=== PATIENT | male | born 1980 | race Caucasian/White ===

== ENCOUNTER 2019-01-22 09:51 | Emergency (ER) | payer BC ==
[2019-01-22 11:33] VITALS: BP 127/84
[2019-01-22] MEDS ORDERED: Ondansetron ODT TAB* 4 MG SL ONE (12:25)
--- NOTE | 2019-01-22 13:33 | UC ---
General HPI - HPI Summary HPI Summary: 38 year old male with no PMH presents with nausea, vomiting, watery diarrhea x 36 hours. Patient believes it was due to eating old spaghetti sauce opened in [facility] fridge for too long. Patient presents with mother who does not have any symptoms. no fever, chills. diffuse abdominal pains. no blood in stool/ vomit. No abdominal surgeries. no other symptoms. - History of Current Complaint Chief Complaint: UCGI Stated Complaint: VOMITING,DIAHREA Time Seen by Provider: 01/22/19 12:08 Hx Obtained From: Patient, Family/[employer] - mother Onset/Duration: Sudden Onset, Lasting Days - 36 hours Timing: Constant Onset Severity: Mild Current Severity: Mild Pain Intensity: 3 Associated Signs & Symptoms: Positive: Abdominal Pain, Diarrhea, Decreased Oral Intake, Nausea, Vomiting. Negative: Back Pain, Cough, Chest Pain, Decreased Responsiveness, Dizziness, Diaphoresis, Fever, Headache, Hematemesis, Hemoptysis , Melena - Allergy/Home Medications Allergies/Adverse Reactions: Allergies Allergy/AdvReac Type Severity Reaction Status Date / Time No Known Allergies Allergy Verified 01/22/19 11:33 Home Medications: Home Medications Levothyroxine Sodium 137 mcg PO DAILY WITH MEAL 01/22/19 [History Confirmed ] Sertraline* [Zoloft*] 150 mg PO BEDTIME 01/22/19 [History Confirmed 01/22/19] buPROPion SR TAB* [Wellbutrin SR TAB*] 150 mg PO BID 01/22/19 [History Confirmed 01/22/19] busPIRone TAB* [Buspar TAB*] 15 mg PO BID 01/22/19 [History Confirmed 01/22/19] PMH/Surg Hx/FS Hx/Imm Hx Previously Healthy: Yes - Surgical History Surgical History: None - Family History Known Family History: Positive: Non-Contributory - Social History Occupation: Employed Full-time Alcohol Use: Rare Substance Use Type: None Smoking Status (MU): Never Smoked Tobacco Review of Systems All Other Systems Reviewed And Are Negative: Yes Constitutional: Positive: Negative. Negative: Fever, Chills, Fatigue Gastrointestinal: Positive: Abdominal Pain, Vomiting, Diarrhea, Nausea Genitourinary: Positive: Negative. Negative: Hematuria, Frequency, Urgency Motor: Positive: Negative Psychological: Positive: Negative Is Patient Immunocompromised?: No Physical Exam Triage Information Reviewed: Yes Appearance: Well-Appearing, No Pain Distress, Well-Nourished Vital Signs: Initial Vital Signs Temp 99.2 F 01/22/19 11:28 Pulse 81 01/22/19 11:28 Resp 18 01/22/19 11:28 BP 127/84 01/22/19 11:28 Pulse Ox 99 01/22/19 11:28 Vital Signs Reviewed: Yes Eyes: Positive: Conjunctiva Clear ENT: Positive: Hearing grossly normal Respiratory: Positive: Chest non-tender, Lungs clear, Normal breath sounds, No respiratory distress, No accessory muscle use. Negative: Respiratory distress, Crackles, Rhonchi, Stridor, Wheezing Cardiovascular: Positive: RRR, No Murmur. Negative: Tachycardia, Bradycardia Abdomen Description: Positive: No Organomegaly, Soft, Other: - neg psoas, neg obsturator. diffuse pain with moderate palpation throughout abdomen.. Negative : CVA Tenderness (R), CVA Tenderness (L), Distended, Guarding, Hepatomegaly, McBurney's Point Tenderness, Peritoneal Signs Neurological Exam: Normal Psychological Exam: Normal Course/Dx - Course Course Of Treatment: Gastroenertitis, possible infectious. Treat conservatively, patient able to tolerate PO after getting zofran at . will return if symptoms worsen for possible stool testing. - increase fluid intake - Zofran as needed for nausea - Return within 1-2 days if no improvement with stooling - Return if increased abdominal pain, fever, chills. - Differential Dx - Multi-Symptom Differential Diagnoses: Other - Diagnoses Provider Diagnosis: Vomiting Discharge ED - Sign-Out/Discharge Documenting (check all that apply): Patient Departure All imaging exams completed and their final reports reviewed: No Studies - Discharge Plan Condition: Good Disposition: HOME Prescriptions: Ondansetron ODT TAB* [Zofran 4 MG Odt TAB*] 4 mg PO Q8H PRN #30 tab.odt PRN Reason: nausea, vomiting Patient Education Materials: Dehydration (ED), Acute Nausea and Vomiting (ED) Forms: *Work Release Referrals: Aureliano Banegas MD [Primary Care Provider] - Additional Instructions: - increase fluid intake - Zofran as needed for nausea - Return within 1-2 days if no improvement with stooling - Return if increased abdominal pain, fever, chills. - Billing Disposition and Condition Condition: GOOD Disposition: Home
== END 2019-01-22 13:05 | disposition home or self-care (01) ==
LOC: UCEAST 09:51
DX: R11.2 Nausea with vomiting, unspecified (principal); R10.9 Unspecified abdominal pain; R19.7 Diarrhea, unspecified
CPT/HCPCS: 99202; A9270-GY; G0463